=== PATIENT | female | born 1970 | race Caucasian/White ===

== ENCOUNTER → 2017-04-29 | Outpatient (REF) | payer OTHER ==
[2017-04-29 14:25] LABS: ESTRADIOL 34.8 PG/ML
== END ==
LOC: M LABDRAW1 13:30
DX: N97.9 Female infertility, unspecified (principal)

== ENCOUNTER → 2017-05-24 | Outpatient (CLI) | payer OTHER ==
--- NOTE | 2017-05-24 14:27 | REP ---
Clinical: Postop pelvic pain. Technique: Transabdominal pelvic ultrasound followed by transvaginal examination for better evaluation of the endometrium and adnexa with color Doppler evaluation of the ovaries. Findings: Bladder is unremarkable and measures 10.4 x 4.8 x 10.6 cm . Normal anteverted uterus measures 8.3 x 3.8 x 5.5 cm. Technologist raises the possibility of septated uterus. The endometrial complex measures 4.3 mm thickness. No discrete uterine or endometrial abnormalities are appreciated. Bilateral ovaries are normal in appearance and vascularity without evidence for torsion and without significant follicles. Right ovary measures 2.1 x 9.6 x 1.5 cm ; R I = 0.69 . Left ovary measures 1.8 x 1.1 x 1.5 cm ; R I = 0.58 . No pelvic fluid or adnexal mass lesion. Impression: 1. Normal pelvic ultrasound. Possible septate uterus. 2. Normal ovaries without follicles and without torsion. Signed by Justo Fisher MD 05/24/2017 02:18 P
[2017-05-24 15:41] LABS: FOLLICLE STIMULATING HORMONE 33.3 mIU/mL
== END ==
LOC: M RAD 13:15
PROVIDERS: ATTEND Allergy & Immunology
DX: N97.9 Female infertility, unspecified (principal)

== ENCOUNTER → 2017-07-01 | Outpatient (CLI) | payer OTHER ==
--- NOTE | 2017-07-01 10:47 | REP ---
PELVIC ULTRASOUND WITH FOLLICLE EVALUATION: Real-time sonographic evaluation of pelvis performed utilizing transabdominal and endovaginal technique. Bladder measures 13.4 x 8.2 x 11.4 cm. Uterus measures 7.8 x 3.7 x 6.0. Uterus appears to have a subseptate configuration with endometrial thickness approximately 4 mm in AP dimension, both on the right and on the left. There is no endometrial fluid collection. The ovaries appear normal in size and echotexture, right ovary measuring 3.0 x 1.5 x 2.7 cm, and left ovary 2.6 x 1.5 x 1.4 cm. There is no adnexal mass or torsion. Blood flow is seen in each ovary with duplex Doppler evaluation. Trace free fluid in the cul-de-sac is likely physiologic in nature. Echotexture of the myometrium is somewhat heterogeneous, but no discrete fibroids are seen. No follicles are seen in either ovary which measuring greater than 1 cm in diameter. Approximately six subcentimeter follicles are seen in the right ovary and one in the left. IMPRESSION: Uterus appears to have a subseptate configuration. No mass or torsion. Trace free fluid is likely physiologic in nature. Heterogeneous myometrium without discrete fibroid. Subcentimeter follicles in each ovary without any follicle measuring greater than 1 cm in diameter. Signed by Devan Gallardo MD 07/01/2017 01:31 P
== END ==
LOC: M RAD 08:48
DX: R10.2 Pelvic and perineal pain (principal)

== ENCOUNTER → 2022-04-27 | Outpatient (CLI) | payer BC | LOC: M PLAIMG 10:34 | DX: M25.519 Pain in unspecified shoulder (principal); M54.2 Cervicalgia; M79.602 Pain in left arm ==

== ENCOUNTER → 2024-06-13 | Outpatient (CLI) | payer BC | LOC: M RAD 08:38 | PROVIDERS: ATTEND Internal Medicine Gastroenterology | DX: K76.0 Fatty (change of) liver, not elsewhere classified (principal); K44.9 Diaphragmatic hernia without obstruction or gangrene; K59.00 Constipation, unspecified; R10.31 Right lower quadrant pain; R05.9 Cough, unspecified; R14.2 Eructation; R10.2 Pelvic and perineal pain ==